=== PATIENT | male | born 1950 | race Caucasian/White ===

== ENCOUNTER 2020-09-22 07:37 | Day surgery (SDC) | payer MEDICARE ==
[~2020-09-22] VITALS: Ht 180.3 cm; Wt 123.4 kg
[~2020-09-22 07:37] MED LIST: ASPIRIN81 MG PO; B121000 MC1 PO; BUPROPION HCL150 M2 PO; CETIRIZINE10 MG PO; FISH OIL1000 MG PO; LOSARTAN POTASS50 MG PO; SIMVASTATIN40 MG PO; TURMERIC500 MG PO
[2020-09-22 11:44] VITALS: BP 119/65
== END 2020-09-22 10:45 | disposition home or self-care (01) ==
LOC: ENDO 07:37 → ORM 08:00 → ENDO 08:00
PROVIDERS: ATTEND Surgery
PROC: 0DJD8ZZ Inspection of Lower Intestinal Tract, Via Natural or Artificial Opening Endoscopic (ICD-10-PCS; principal; 2020-09-22)
DX: Z12.11 Encounter for screening for malignant neoplasm of colon (principal); K57.30 Diverticulosis of large intestine without perforation or abscess without bleeding; I10 Essential (primary) hypertension; Z86.010 Personal history of colon polyps; Z80.0 Family history of malignant neoplasm of digestive organs

== ENCOUNTER 2024-06-09 10:34 | Emergency (ER) | payer MEDICARE ==
[~2024-06-09] VITALS: Ht 180.3 cm; Wt 111.0 kg
[2024-06-09] MEDS ORDERED: METFORMIN HCL500 M1 PO (11:01)
[2024-06-09] MEDS ORDERED: AMLODIPINE BES2.5 MG PO (11:01)
[2024-06-09] MEDS ORDERED: LIDOcaine HCl 1% (Local Anesth.) 20 ML VIAL STI STA (11:07)
[2024-06-09] MEDS ORDERED: POVIDONE IODINE 0.5 OZ/BTL TOP ONE (11:10)
[2024-06-09] MEDS ORDERED: Diph, Acellular Pertussis, Tet 0.5 ML/VIAL (Tdap) SDV IM ONE (11:10)
[2024-06-09] MEDS ORDERED: CEPHALEXIN500 M1 PO (12:05)
[2024-06-09 12:27] VITALS: BP 123/68
== END 2024-06-09 12:30 | disposition home or self-care (01) ==
LOC: ED 10:34
PROC: 0HQLXZZ Repair Left Lower Leg Skin, External Approach (ICD-10-PCS; principal; 2024-06-09)
DX: S81.812A Laceration without foreign body, left lower leg, initial encounter (principal); W22.09XA Striking against other stationary object, initial encounter; I10 Essential (primary) hypertension; J44.9 Chronic obstructive pulmonary disease, unspecified
CPT/HCPCS: 90715